=== PATIENT | male | born 1995 | race Caucasian/White ===

== ENCOUNTER 2018-02-26 13:44 | Emergency (ER) | payer SELFPAY, MEDICAID | END 2018-02-26 16:21 | disposition home or self-care (01) | LOC: FTE 13:44 | DX: B35.1 Tinea unguium (principal) | CPT/HCPCS: 99283 ==

== ENCOUNTER 2018-09-28 20:09 | Emergency (ER) | payer SELFPAY | END 2018-09-28 21:36 | disposition left against medical advice (07) | LOC: FTE 20:09 | DX: Z53.21 Procedure and treatment not carried out due to patient leaving prior to being seen by health care provider (principal) | CPT/HCPCS: 93005 ==